=== PATIENT | female | born 1995 | race Caucasian/White ===

== ENCOUNTER 2017-08-14 10:20 | Emergency (ER) | payer OTHER ==
[~2017-08-14] VITALS: Ht 170.2 cm; Wt 95.9 kg
[2017-08-14 10:22] VITALS: TEMP 36.6; Ht 170.2 cm; Wt 95.9 kg
[2017-08-14] MEDS ORDERED: KETOROLAC TROMETHAMINE 60 MG/2 ML VIAL IM STA (10:41)
[2017-08-14] MEDS ORDERED: MoRPHine SULFATE 10 MG/ML CARP/VIAL IM STA (10:41)
[2017-08-14] MEDS ORDERED: DEXAMETHASONE **PF** INJ 10 MG/ML VIAL IM ONE (10:45)
[2017-08-14] MEDS ORDERED: ONDANSETRON 4MG OD TAB PO ONE (10:45)
[2017-08-14] MEDS ORDERED: AMPH10TA2 PO (11:43)
[2017-08-14] MEDS ORDERED: ESCI1TAB10 PO (11:43)
[2017-08-14] MEDS ORDERED: ESCI1TAB6 PO (11:43)
[2017-08-14] MEDS ORDERED: BCPILLS PO (11:43)
[2017-08-14] MEDS ORDERED: CYCL10TA6 PO (11:43)
[2017-08-14] MEDS ORDERED: SPIR25TA PO (11:43)
[2017-08-14] MEDS ORDERED: LISD70CA PO (11:43)
--- NOTE | 2017-08-14 11:58 | DIAGNOSTIC IMAGING REPORT ---
LUMBAR SPINE WITHOUT HISTORY: 21 years-old Female s/p fall with persistent LLE radiculitis acute low back pain status post fall COMPARISON: None available TECHNIQUE: Multiple axial CT images of the lumbar spine were obtained without contrast. A dose lowering technique was used consistent with the principals of MARIAJOSE. FINDINGS: Bone mineralization is within normal limits. There is no acute fracture or subluxation of the lumbar spine. No significant intervertebral disc space narrowing identified. T12-L1, L1-L2 and L2-L3 demonstrate no central canal or foraminal narrowing. Imaged intra-abdominal and paraspinal structures demonstrate no acute abnormality. No aortic aneurysm. No sacral fracture. L3-L4: Posterior disc bulge flattens the ventral thecal sac. No significant central canal or foraminal narrowing identified. L4-L5: Small circumferential annular disc bulge appears to cause mild central canal stenosis. No significant foraminal narrowing. L5-S1. Circumferential annular disc bulge with mild ligamentum flavum thickening and possible left paracentral/left lateral recess disc protrusion measuring approximately 11 mm transversely causing mild central canal and moderate left lateral recess narrowing. There is also suggestion of mild left foraminal stenosis. The right foramen is patent. IMPRESSION: 1. No acute fracture or subluxation. 2. Annular disc bulge with suggested left paracentral/left lateral recess disc protrusion at L5-S1 causes mild central canal, moderate left lateral recess and mild left foraminal stenosis. These findings could be further evaluated with follow-up MRI of the lumbar spine as clinically indicated which has greater sensitivity for evaluating the central canal and foraminal structures. The above report was generated using voice recognition software. It may contain grammatical, syntax or spelling errors. Electronically signed by: Reggie Dawkins M.D. 08/14/2017 11:56 AM Dictated Date/Time: 08/14/2017 11:50 AM
[2017-08-14] MEDS ORDERED: METH4PAK PO (12:23)
[2017-08-14] MEDS ORDERED: OXYC1TAB3 PO (12:23)
[2017-08-14 12:45] VITALS: BP 142/85; PULSE 80; O2SAT 100
--- NOTE | 2017-08-14 15:53 | EMERGENCY ROOM VISIT NOTE ---
History First contact with patient: 10:27 Chief Complaint: BACK PAIN Stated Complaint: BACK PAIN RADIATING DOWN LEG History of Present Illness The patient is a 21 year old female who presents to the Emergency Room with complaints of persistent lower back pain radiating down the left thigh and into the calf. The patient reports that she has been experiencing this pain since she fell on 07/20/17. The patient was seen at the [facility] [place] who is also her Worker's Compensation provider. The patient reports that she initially was provided a prescription for Flexeril. The patient had no imaging studies performed at that time. On her second visit with persistent symptoms, she was provided a prescription for prednisone and more Flexeril. The patient again did not have any significant relief, and presents here for evaluation. The patient denies any injury to her back since her fall at work when she tripped and fell face first. She reports a bruise to her right anterior knee and leg, but denies any significant pain over that area. Patient denies any prior history of back issues. The patient denies any head injury, neck pain, upper back pain, chest pain or shortness of breath. The patient denies any bladder/bowel incontinence, saddle anesthesias or profound left lower extremity weakness. Review of Systems 10 system review was performed and was negative except for pertinent positives and negatives as indicated in history of present illness Past Medical/Surgical History Medical Problems: (1) Attn Deficit W Hyperact Surgical Problems: (1) No history of previous surgery Family History Unremarkable Social History Smoking Status: Never Smoker Alcohol Use: none Marital Status: single Housing Status: lives with family Occupation Status: employed Current/Historical Medications Scheduled Control Pills ( Control Pills), 1 TAB PO DAILY Escitalopram Oxalate (Lexapro), 20 MG PO DAILY Escitalopram Oxalate (Lexapro), 5 MG PO DAILY Lisdexamfetamine Dimesylate (Vyvanse), 70 MG PO DAILY Methylprednisolone (Medrol Dosepak), 0 PO DAILY Spironolactone (Aldactone), 25 MG PO DAILY Scheduled PRN Amphetamine-Dextroamphetamine 10MG (Adderall 10MG), 10 MG PO DAILY PRN for PRN Cyclobenzaprine Hcl (Flexeril), 10 MG PO HS PRN for MUSSPA\ Oxycodone Ir (Roxicodone Ir), 1-2 TAB PO Q4H PRN for Pain Physical Exam Vital Signs Date Time Temp Pulse Resp B/P (MAP) Pulse Ox O2 Delivery O2 Flow Rate FiO2 08/14/17 12:45 80 16 142/85 100 08/14/17 11:42 80 16 140/80 98 Room Air 08/14/17 10:22 36.6 111 20 138/82 99 Room Air Physical Exam CONSTITUTIONAL: Healthy and well nourished. Alert and oriented X 3 with positive affect. Patient appears in moderate discomfort. HEENT: Normocephalic, atraumatic. Pupils equal, round and reactive. NECK: Full active range of motion without discomfort. RESPIRATORY: Clear to auscultation bilaterally with no wheezing, crackles, rhonchi or stridor. CARDIOVASCULAR: Regular rate and rhythm with no murmurs, rubs or gallops. GASTROINTESTINAL: Bowel sounds present in all quadrants. Soft and nontender to palpation. MUSCULOSKELETAL: Examination shows tenderness to palpation through the lower central lumbar spine, left SI joint and sciatic notch. Negative logroll. Positive straight leg raise with negative crossover. Ankle plantar/ dorsiflexion strength is 4 out of 5 and symmetric bilaterally. Pedal pulses are intact. The right anterior knee does show mild ecchymosis, however the patient has no antalgic gait. No joint effusion noted, and ligamentous exam is normal with full active range of motion. INTEGUMENTARY: No rash or other significant dermatologic conditions noted. NEUROLOGIC: No focal neurologic deficits noted. Lower extremity deep tendon reflexes are 2+ and bilaterally symmetric. Left lower extremity is also sensory intact in all dermatomes. Medical Decision & Procedures ER Provider Diagnostic Interpretation: Noncontrast CT of the lumbar spine shows the following: LUMBAR SPINE WITHOUT HISTORY: 21 years-old Female s/p fall with persistent LLE radiculitis acute low back pain status post fall COMPARISON: None available TECHNIQUE: Multiple axial CT images of the lumbar spine were obtained without contrast. A dose lowering technique was used consistent with the principals of ALARA. FINDINGS: Bone mineralization is within normal limits. There is no acute fracture or subluxation of the lumbar spine. No significant intervertebral disc space narrowing identified. T12-L1, L1-L2 and L2-L3 demonstrate no central canal or foraminal narrowing. Imaged intra-abdominal and paraspinal structures demonstrate no acute abnormality. No aortic aneurysm. No sacral fracture. L3-L4: Posterior disc bulge flattens the ventral thecal sac. No significant central canal or foraminal narrowing identified. L4-L5: Small circumferential annular disc bulge appears to cause mild central canal stenosis. No significant foraminal narrowing. L5-S1. Circumferential annular disc bulge with mild ligamentum flavum thickening and possible left paracentral/left lateral recess disc protrusion measuring approximately 11 mm transversely causing mild central canal and moderate left lateral recess narrowing. There is also suggestion of mild left foraminal stenosis. The right foramen is patent. IMPRESSION: 1. No acute fracture or subluxation. 2. Annular disc bulge with suggested left paracentral/left lateral recess disc protrusion at L5-S1 causes mild central canal, moderate left lateral recess and mild left foraminal stenosis. These findings could be further evaluated with follow-up MRI of the lumbar spine as clinically indicated which has greater sensitivity for evaluating the central canal and foraminal structures. Medications Administered Medications (Trade) Dose Ordered Sig/Kailey Route Start Time Stop Time Status Last Admin Dose Admin Morphine Sulfate (MoRPHine SULFATE INJ) 8 mg NOW STAT IM 08/14/17 10:41 08/14/17 10:42 DC 08/14/17 11:00 8 MG Ketorolac Tromethamine (Toradol Inj) 60 mg NOW STAT IM 08/14/17 10:41 08/14/17 10:42 DC 08/14/17 11:00 60 MG Dexamethasone Sodium Phosphate (Dexamethasone Inj Pf) 10 mg NOW ONCE IM 08/14/17 10:45 08/14/17 10:46 DC 08/14/17 11:01 10 MG Ondansetron HCl (Zofran Odt) 4 mg ONE ONCE PO 08/14/17 10:45 08/14/17 10:46 DC 08/14/17 11:01 4 MG ED Course Patient history and physical exam were performed. Nurse's notes were reviewed. Vital signs were reviewed and were normal. The patient appears in moderate discomfort. She was administered IM morphine, Toradol and Decadron, along with Zofran ODT to prevent nausea. Noncontrast CT of the lumbar spine showed an annular disc bulge with suggested left paracentral/left lateral recess disc protrusion at L5-S1 causes mild central canal, moderate left lateral recess and mild left foraminal stenosis. The patient was provided a copy of her report, and instructed to follow-up with negin henderson for further reevaluation as she may warrant an MRI study. The patient currently does not have any emergent neurologic or musculoskeletal findings to warrant an emergent MRI at this time. The patient reports that she did have some temporary relief with steroids. I did elect to provide the patient with prescriptions for a Medrol Dosepak and OxyIR 5 mg. No drinking or driving while taking OxyIR. She may also alternate ibuprofen and Tylenol for additional pain relief. She was instructed to return to the emergency department for any developing saddle anesthesias, bladder/ bowel incontinence, foot drop or other concerning symptoms. The patient was happy with plan of care, voiced understanding of all discharge instructions, and rated her discomfort a 3 out of 10 at the conclusion of my exam. Medical Decision [place] Drug Monitoring Program Search Results: patient reviewed within database, no issues identified Medication Reconcilliation Current Medication List: was personally reviewed by me Blood Pressure Screening Patient's blood pressure: Normal blood pressure Impression Primary Impression: Left lumbar radiculitis Additional Impressions: Bulging of lumbar intervertebral disc Work related injury Contusion of right knee Departure Information Prescriptions Oxycodone Ir (Roxicodone Ir) 5 Mg Tab 1-2 TAB PO Q4H Y for Pain, #15 TAB For Initial Treatment Prov: Carlos Thompson PA 08/14/17 Methylprednisolone (MEDROL DOSEPAK) 4 Mg Tyler 0 PO DAILY, #1 PKT Prov: Carlos Thompson PA 08/14/17 Referrals No Doctor, Assigned (PCP) Patient Instructions [facility] Problem Qualifiers
== END 2017-08-14 12:46 | disposition home or self-care (01) ==
LOC: C.EDB 10:21
DX: M54.16 Radiculopathy, lumbar region (principal); M51.26 Other intervertebral disc displacement, lumbar region; S80.01XA Contusion of right knee, initial encounter; W19.XXXA Unspecified fall, initial encounter; Y92.89 Other specified places as the place of occurrence of the external cause; Y99.0 Civilian activity done for income or pay; F90.9 Attention-deficit hyperactivity disorder, unspecified type; Z79.3 Long term (current) use of hormonal contraceptives; Z79.899 Other long term (current) drug therapy